=== PATIENT | female | born 1945 | race Two or more races ===

== ENCOUNTER 2017-07-30 02:37 | Emergency (ER) | payer MEDICARE, OTHER ==
[2017-07-30 03:00] LABS: ADD MAN DIFF? NO
[2017-07-30 03:03] LABS: BASO % 0 % (0-3); EOS % 0 % (0-3); HEMATOCRIT 44.4 % (36.0-47.0); HEMOGLOBIN 15.3 g/dL (12.0-15.5); LYMPH # 0.6 x10^3/uL (1.0-4.8); LYMPH % 7 % (24-48); MEAN CORPUSCULAR HEMOGLOBIN 30 pg (25-35); MEAN CORPUSCULAR HGB CONC 35 g/dL (31-37); MEAN CORPUSCULAR VOLUME 88 fL (79-100); MONO # 1.3 x10^3/uL (0.0-1.1); MONO % 13 % (0-9); NEUT # 7.9 x10^3uL (1.8-7.7); NEUT % 80 % (31-73); PLATELET COUNT 184 x10^3/uL (140-400); RED BLOOD COUNT 5.07 x10^6/uL (3.50-5.40); RED CELL DISTRIBUTION WIDTH 14.3 % (11.5-14.5); WHITE BLOOD COUNT 9.8 x10^3/uL (4.0-11.0)
[2017-07-30 03:36] LABS: INFLUENZA A PATIENT NEGATIVE (NEGATIVE); INFLUENZA B PATIENT POSITIVE (NEGATIVE); OBC FLU VALID
[2017-07-30 04:00] LABS: D-DIMER 0.63 ug/mlFEU (0.00-0.50)
[2017-07-30 04:14] LABS: TROPONINI < 0.017 ng/mL (0.000-0.055)
[2017-07-30] MEDS ORDERED: CONTRAST GIVEN MC ×2 (04:45)
[2017-07-30] MEDS ORDERED: IOHEXOL 300 MG/ML 100ML VIAL. IV ×2 (04:45)
[2017-07-30 05:11] LABS: ANION GAP 14 (6-14); BLOOD UREA NITROGEN 14 mg/dL (7-20); BUN/CREATININE RATIO 13 (6-20); CALCIUM 8.7 mg/dL (8.5-10.1); CARBON DIOXIDE 21 mmol/L (21-32); CHLORIDE 101 mmol/L (98-107); CREATININE 1.1 mg/dL (0.6-1.0); GFR 48.7; GLUCOSE 135 mg/dL (70-99); POTASSIUM 3.8 mmol/L (3.5-5.1); SODIUM 136 mmol/L (136-145)
[2017-07-30 05:16] LABS: ALBUMIN 3.8 g/dL (3.4-5.0); ALK PHOS 112 U/L (46-116); ALT (SGPT) 32 U/L (14-59); AST (SGOT) 27 U/L (15-37); TOTAL BILIRUBIN 0.4 mg/dL (0.2-1.0); TOTAL PROTEIN 7.7 g/dL (6.4-8.2)
[2017-07-30 05:44] LABS: BILIRUBIN,URINE NEGATIVE (NEG); CLARITY,URINE CLEAR; COLOR,URINE YELLOW; GLUCOSE,URINE NEGATIVE (NEG); NITRITE,URINE NEGATIVE (NEG); PROTEIN,URINE NEGATIVE (NEG-TRACE)
[2017-07-30 06:00] LABS: SQUAMOUS EPITHELIAL CELL,UR FEW /LPF
[2017-07-30 06:01] LABS: BACTERIA,URINE FEW /HPF (0-FEW)
== END 2017-07-30 06:54 | disposition home or self-care (01) ==
LOC: ER 02:37
DX: J10.1 Influenza due to other identified influenza virus with other respiratory manifestations (principal); N63.23 Unspecified lump in the left breast, lower outer quadrant; E11.9 Type 2 diabetes mellitus without complications
CPT/HCPCS: 36415; 71045; 71275; 80053; 81001; 84484; 85025; 85379; 87804; 87804-59; 93005; 99285-25

== ENCOUNTER → 2017-08-05 | Outpatient (CLI) | payer MEDICARE, OTHER | END | disposition home or self-care (01) | LOC: US 09:12 | DX: R93.8 Abnormal findings on diagnostic imaging of other specified body structures (principal); N88.8 Other specified noninflammatory disorders of cervix uteri; Z78.0 Asymptomatic menopausal state | CPT/HCPCS: 76830; 76856 ==

== ENCOUNTER → 2017-09-27 | Outpatient (CLI) | payer MEDICARE, OTHER ==
[2017-09-27 16:01] LABS: ADD MAN DIFF? NO
[2017-09-27 16:06] LABS: BASO % 0 % (0-3); EOS # 0.1 x10^3/uL (0.0-0.7); EOS % 1 % (0-3); HEMATOCRIT 45.1 % (36.0-47.0); HEMOGLOBIN 15.4 g/dL (12.0-15.5); LYMPH % 26 % (24-48); MEAN CORPUSCULAR HEMOGLOBIN 30 pg (25-35); MEAN CORPUSCULAR HGB CONC 34 g/dL (31-37); MEAN CORPUSCULAR VOLUME 88 fL (79-100); MONO # 0.7 x10^3/uL (0.0-1.1); MONO % 9 % (0-9); NEUT % 64 % (31-73); PLATELET COUNT 264 x10^3/uL (140-400); RED BLOOD COUNT 5.13 x10^6/uL (3.50-5.40); WHITE BLOOD COUNT 7.9 x10^3/uL (4.0-11.0)
[2017-09-27 16:37] LABS: ALBUMIN 3.8 g/dL (3.4-5.0); ALK PHOS 139 U/L (46-116); ALT (SGPT) 34 U/L (14-59); ANION GAP 7 (6-14); AST (SGOT) 22 U/L (15-37); BLOOD UREA NITROGEN 20 mg/dL (7-20); BUN/CREATININE RATIO 20 (6-20); CALCIUM 9.4 mg/dL (8.5-10.1); CARBON DIOXIDE 29 mmol/L (21-32); CHLORIDE 104 mmol/L (98-107); GFR 54.3; GLUCOSE 147 mg/dL (70-99); POTASSIUM 3.7 mmol/L (3.5-5.1); SODIUM 140 mmol/L (136-145); TOTAL BILIRUBIN 0.5 mg/dL (0.2-1.0); TOTAL PROTEIN 7.6 g/dL (6.4-8.2)
[2017-09-28 04:18] LABS: CA 125 16.8 U/mL (0.0-38.1)
== END | disposition home or self-care (01) ==
LOC: EKG 15:28
DX: Z01.818 Encounter for other preprocedural examination (principal); C54.1 Malignant neoplasm of endometrium
CPT/HCPCS: 36415; 80053; 85025; 86304; 93005

== ENCOUNTER → 2020-07-25 | Outpatient (CLI) | payer MEDICARE, OTHER ==
[2017-07-30 02:47] VITALS: BP 127/62
[~2020-07-25] MED LIST: ACET500T68 PO; FLUT9.9S NS; METF500T16 PO; MULT-460 PO; PANT40TA77 PO; VENTOLIN HFA18 GM INH; [UNRECOGNIZED DRUG - CODE] PO
--- NOTE | 2020-07-25 12:40 | KCIC ---
STUDY: MRI of the right shoulder without contrast INDICATION: Right shoulder pain. Limited range of motion. COMPARISON: 06/04/2020 right shoulder radiographs TECHNIQUE: Multiplanar MR imaging of the right shoulder performed without the use of intravenous or i ntra-articular contrast. FINDINGS: AC joint: Moderate AC joint arthrosis with capsular hypertrophy and articular surface remodeling. Ext ension of fluid signal above the AC joint. Small volume fluid within the subacromial subdeltoid bursa . Rotator cuff: High-grade bursal sided tear of the supraspinatus leading edge at the footprint with in volvement of approximate 75 percent tendon cross-sectional thickness, image 19 series 4. The tear rose sures approximately 4.5 mm mediolateral by 6 mm AP. Background hypertrophic tendinosis. Hypertrophic tendinosis of the infraspinatus as well without a discrete tear. Intact teres minor. Mild subscapular is tendinosis. No significant rotator cuff muscular atrophy. Labrum: Labral degeneration/degenerative tearing from superior to posterior/superior. Long head biceps tendon: Hypertrophic tendinosis of the intra-articular portion extending into the bi cipital groove. The tendon remains normally located. Cartilage: No full-thickness defect. Bones: No acute fracture. Greater more so than lesser tuberosity osseous remodeling. Trace edema subj acent to the supraspinatus tear. Miscellaneous: Small shoulder joint effusion. Small amount of subcoracoid bursal fluid communicating with the subacromial subdeltoid bursa. No axillary adenopathy. Impression: 1. Focal high-grade bursal sided tear of the supraspinatus leading edge at the footprint measuring 4.5 mm mediolateral by 6 mm AP. Estimated 75 percent cross-sectional involvement. Background supraspi natus and infraspinatus more so than subscapularis tendinosis without an additional high-grade tear. Muscular bulk is maintained. 2. Labral degeneration/degenerative tearing from superior to posterior/superior. Hypertrophic intra- articular long head biceps tendinosis extending into the groove entrance. 3. Small shoulder joint effusion. Mild subacromial subdeltoid bursitis. 4. Moderate AC joint arthrosis. Electronically signed by: PARVIN MATTHEWS MD (07/25/2020 12:38 PM) [id number]
== END ==
LOC: KCIC MRI 09:09
PROVIDERS: ATTEND Orthopaedic Surgery
DX: M19.011 Primary osteoarthritis, right shoulder (principal); M75.51 Bursitis of right shoulder; M25.411 Effusion, right shoulder
CPT/HCPCS: 73221